=== PATIENT | male | born 1950 | race Caucasian/White ===

== ENCOUNTER 2023-04-23 14:45 | Outpatient (CLI) | payer MEDICARE, SELFPAY | END 2023-04-23 14:46 | disposition home or self-care (01) | PROVIDERS: PCP Internal Medicine; Visit Provider Internal Medicine | DX: Z00.00 Encounter for general adult medical examination without abnormal findings (principal); I10 Essential (primary) hypertension; E78.5 Hyperlipidemia, unspecified; E03.9 Hypothyroidism, unspecified; N41.9 Inflammatory disease of prostate, unspecified | CPT/HCPCS: 80053; 80061; 84153 ==

== ENCOUNTER 2024-12-02 09:48 | Outpatient (CLI) | payer MEDICARE, SELFPAY | END 2024-12-02 09:49 | disposition home or self-care (01) | LOC: NFLDREF 12-15 00:19 | PROVIDERS: PCP Internal Medicine; Referring Provider Internal Medicine; Visit Provider Internal Medicine | DX: E03.9 Hypothyroidism, unspecified (principal); I10 Essential (primary) hypertension; N41.9 Inflammatory disease of prostate, unspecified; E78.5 Hyperlipidemia, unspecified; Z12.5 Encounter for screening for malignant neoplasm of prostate | CPT/HCPCS: 80053; 80061; 84439; 84443; G0103 ==

== ENCOUNTER 2024-12-22 14:31 | Emergency (ER) | payer MEDICARE, SELFPAY ==
--- OUTSIDE RECORDS SUMMARY | 2024-12-22 14:33 | XMS_ITS | Clinical Summary ---
Author Organization [employer] [facility] Address [place], [place] [address] Care Team Providers Care Tax Compliance Agent Name Role Phone Cameron Kim MD Primary Care Provider Allergies Active Allergy Reactions Criticality Noted Date Comments Ciprofloxacin 06/26/2010 Hives Hydrocortisone cortisone creams Morphine Anaphylaxis High 07/23/2021 Penicillins *Unknown - Follow up needed 021 Medications FISH OIL 1,000 MG CAP 1 daily 0 08/14/2009 Active MEDICATION ORDER COMPOSER Juice Plus 6 capsules daily 0 08/14/2009 Active levothyroxine (SYNTHROID) 112 mcg tablet 12/23/2015 Active Active Problems Problem Noted Date Diagnosed Date Acute prostatitis 05/29/2010 Spigelian hernia 08/14/2009 Sciatica 08/14/2009 Other and unspecified hyperlipidemia Unspecified hypothyroidism Routine general medical exam ination at a health care facility Overview (12/24/2006): colonoscopy bone density Last Lipids Chol:4349509/16/2005 T09/16/2005 HDL:4709/16/2005 LDL:9336609/16/2005 GLUCOSE (mg/dL) Date Value 09/16/2005 92 .lastpsa 0.40 08/08/2004 Immunizations Name Administration Dates Next Due Influenza, IIV3 (Age >=3 years) 08/14/2009,10/07 Tdap 08/01/2008 Family History Medical History Relation Name Comments Heart Disease Father Relation Name Status Comments Father Alive bypass surgery Social History Tobacco Use Types Packs/Day Years Used Date Smoking Tobacco: Never Smokeless Tobacco: Never Tobacco Cessation:Counseling Given: Yes Comments:non-smoker Alcohol Use Standard Drinks/Week Comments No 0 (1 standard drink = 0.6 oz pur e alcohol) Sex and Gender Information Value Date Recorded Sex Assigned at Not on file 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 Gender Identity Not on file Sexual Orientation Not on file Obstetrics History Last Filed Vital Signs Vital Sign Reading Time Taken Comments Blood Pressure 156/119 05/24/2022 8:05 PM CDT Pulse 78 05/24/2022 8:05 PM CDT Temperature 36.6 C (97.9 F) 05/24/2022 7:28 PM CDT Respiratory Rate 18 05/24/2022 8:05 PM CDT Oxygen Saturation 98% 05/24/2022 8:05 PM CDT Inhaled Oxygen Concentration - - Weight 70.3 kg (155 lb) 05/24/2022 7:28 PM CDT Height 177.8 cm (5' 10) 08/25/2018 9:15 AM CDT Body Mass Index 22.24 08/25/2018 9:15 AM CDT Plan of Treatment Health Maintenance Due Date Last Done Comments Depression screening for age 12+ 1962 Hepatitis C screening for ag e 18-79 1968 Colonoscopy through age 75 1995 Pneumococcal series for age 50+ (1 of 1 - PCV) 2000 Zoster (shingles) series for age 50+ (1 of 2) 2000 Lipids for age 45-75 02/01/2015 02/01/2010, 08/14/2009, 12/26/2006, Additional history exists Medicare Wellness for age 65+ 2015 BMI (ht and wt on same day) for age 18+ 03/18/2017 03/18/2016 Tetanus booster 08/01/2018 08/01/2008 COVID-19 vaccine series (2023- season) 2024 03/01/2021, 02/01/2021 Influenza for age 65+ 07/18/2024 08/14/2009, 007 RSV vaccine for adults or (1 - 1-dose 75+ series) 2025 Tdap Completed 08/01/2008 Procedures Procedure Name Priority Date/Time Associated Diagnosis Comments LIPID PANEL Routine 02/01/2010 11:16 AM CDT HYPERLIPIDEMIA from Last 3 Months or Most Recently Relevant to Health Maintenance Results * (ABNORMAL) LIPID PANEL (02/01/2010 11:16 AM CDT) CHOLESTEROL,TOTAL 206(H) 110 - 199 mg/dL [facility] TRIGLYCERIDES 96 40 - 149 mg/dL [facility] HDL CHOLESTEROL 47 >40 mg/dL [facility] CHOL/HDL RATIO 4.38 <4.51 [facility] LDL CHOLESTEROL 140(H) <131 mg/dL [facility] PATIENT STATUS Fasting [facility] Blood specimen (specimen) BLOOD SPECIMEN / Unknown 02/01/2010 11:16 AM CDT 02/01/2010 10:23 AM CDT Leoncio Vizcaino MD CHEMISTRY Final Result [facility] INTERNAL ZIP [id number] [place] [phone] from Last 3 Months or Most Recently Relevant to Health Maintenance Insurance [employer] MEDICARE ADVANTAGE MR [employer] MEDICARE ADVANTAGE MR Care Teams Tax Compliance Agent Relationship Specialty Start Date End Date Cameron Kim MD [address] [place] [address] PCP - General Internal Medicine 05/24/22
--- OUTSIDE RECORDS SUMMARY | 2024-12-22 14:33 | XMS_ITS | Clinical Summary ---
Author Organization [employer] Address [address] [place] [address] Care Team Providers Care Physical Anthropologist Name Role Phone Cameron Kim MD Primary Care Provider [phone] Source Comments You are receiving this document as you are listed as the primary care provider,follow-up provider, or the patient has been referred to you for consultation.This is in compliance with the Medicare and[facility] E[facility] Incentive Program,which states Providers who transition their patient to another setting of careor provider of care or refers their patient to another provider of care shouldprovide summary care record for each transition of care or referral. [employer] Allergies Active Allergy Reactions Criticality Noted Date Comments Cephalexin Unknown 07/22/2021 Cortisone Acetate Other, see comments Medium 8 scally and puffy Morphine Anaphylaxis High 07/23/2021 Penicillins Unknown 07/22/2021 Medications Medication Sig Dispensed Refills Start Date End Date Status levothyroxine (SYNTHROID) 112 MCG tablet Take 112 mcg by mouth daily. Active cholecalciferol 25 MCG TABS Take 1 Tablet by mouth daily. 100 Tablet 3 07/26/2021 Active polyethylene glycol (MIRALAX) 17 g packet Take 1 Packet by mouth two times a day. 365 Each 07/25/2021 Active gabapentin (NEURONTIN) 300 MG capsule TAKE 1 CAPSULE BY MOUTH THREE TIMES A DAY. 270 Capsule 3 07/25/2021 Active Active Problems Problem Noted Date Diagnosed Date Foreign body of cornea, right 07/15/2013 Immunizations Name Administration Dates Next Due Flu Vac (3+ yrs) 10/24/2008 Moderna Monovalent 12+ 03/01/2021,02/01/2021 Social History Tobacco Use Types Packs/Day Years Used Date Smoking Tobacco: Never Alcohol Use Standard Drinks/Week Comments Not Asked 0 (1 standard drink = 0.6 oz pur e alcohol) Sex and Gender Information Value Date Recorded Sex Assigned at Not on file Gender Identity Not on file Sexual Orientation Not on file Last Filed Vital Signs Vital Sign Reading Time Taken Comments Blood Pressure 119/90 07/26/2021 4:00 PM CDT Pulse 64 07/26/2021 4:00 PM CDT Temperature 36.6 C (97.9 F) 07/26/2021 4:00 PM CDT Respiratory Rate 18 07/26/2021 4:00 PM CDT Oxygen Saturation 97% 07/26/2021 4:00 PM CDT Inhaled Oxygen Concentration - - Weight 81.6 kg (180 lb) 07/24/2021 7:45 AM CDT Height 180.3 cm (5' 11) 07/24/2021 7:45 AM CDT Body Mass Index 25.1 07/24/2021 7:45 AM CDT Plan of Treatment Health Maintenance Due Date Last Done Comments Hep C Screening (Preventive Services) 1950 Medicare Annual Wellness Visit 1950 DTaP/Tdap/Td (1 - Tdap) 1969 Cholesterol 1985 Zoster/Shingles (1 of 2) 2000 Pneumococcal 65+ Yrs (1 - PCV) 2015 Colonoscopy 03/21/2021 03/21/2011 COVID-19 Vaccine (3 - 2023-2 5 season) 2024 03/01/2021, 02/01/2021 Influenza (#1) 2024 10/24/2008 RSV (1 - 1-dose 75+ series) 2025 HepA Aged Out No longer eligi ble based on patient's age to complete this topic HepB Aged Out No longer eligi ble based on patient's age to complete this topic Hib Aged Out No longer eligi ble based on patient's age to complete this topic IPV (Polio) Aged Out No longer eligi ble based on patient's age to complete this topic MCV4 Aged Out No longer eligi ble based on patient's age to complete this topic Advance Directives * Full Code (Latest Code Status on File) Date Activated Date Inactivated Comments 07/23/2021 6:43 AM 07/26/2021 6:35 PM Care Teams Physical Anthropologist Relationship Specialty Start Date End Date Cameron Kim MD [address] [place] [address] PCP - General 07/22/21
[2024-12-22 14:37] VITALS: BP 142/85; PULSE 82; RESP 16; TEMP 36.4; O2SAT 97; BMI 25.5
--- NOTE | 2024-12-22 14:55 | ED_ITS ---
HPI - General Adult General Time Seen by Provider: 14:55 Date Seen: 12/22/24 Chief complaint: Extremity Pain/Injury, Lower Stated complaint: possible blood clot Time Seen by Provider: 12/22/24 14:32 Source: patient and RN notes reviewed Mode of arrival: ambulatory Limitations: no limitations History of Present Illness HPI narrative: This 74-year-old male is coming in with a sore area in his right mid outer thigh. He just noticed a few days ago. It does not hurt within the bones is or the leg itself with standing. He just feels generalized sore area. There is no cramping. He notes no trauma. He has no associated shortness of breath or chest pain. He has never had a blood clot before. He is leaving on a trip to [place] on Friday, told some of his friends whom became concerned about a possible blood clot. There is no family history of blood clots. Related Data Previous Rx's ?Medication ?Instructions ?Recorded levothyroxine 112 mcg tablet 112 mcg PO DAILY Hypothyroidism 12/02/24 #90 tabs losartan 50 mg-hydrochlorothiazide 1 tab PO QDAY #90 tabs 12/02/24 12.5 mg tablet Allergies Allergy/AdvReac Type Severity Reaction Status Date / Time morphine Allergy Intermediate Confusion Verified 04/22/23 11:49 Quinolones Allergy Mild Rash Verified 04/22/23 11:49 Review of Systems Narrative: As per HPI. PFS PFS Medical History Healthcare maintenance ?Z00.00 - Encounter for general adult medical examination without abnormal findings (ICD-10) Skin lesions ?L98.9 - Disorder of the skin and subcutaneous tissue, unspecified (ICD-10) Hypertension ?I10 - Essential (primary) hypertension (ICD-10) Hypothyroidism ?E03.9 - Hypothyroidism, unspecified (ICD-10) Surgical History H/O ventral hernia repair (01/15/11) ?Z98.890 - Other specified postprocedural states (ICD-10) ?Z87.19 - Personal history of other diseases of the digestive system (ICD-10) H/O urethrotomy (01/15/11) ?Z98.890 - Other specified postprocedural states (ICD-10) S/P spigelian hernia repair, follow-up exam ?Z09 - Encounter for follow-up examination after completed treatment for conditions other than malignant neoplasm (ICD-10) Social History What is your current living situation?: I presently have a place to live Problems where you live: declined to answer In the past 12 months, utilities in danger of being shut off: no In past 12 months, lack of transportation kept you from medical appts, meetings, work, or getting things needed for daily living: no In the past 12 mos, have been you worried that your food would run out before you had money to buy more?: never true In the past 12 mos, the food you bought just didn't last and you didn't have money to buy more?: never true Smoking Status: Never smoker How often do you have a drink containing alcohol: never AUDIT-C Alcohol total score: 0 Non-prescribed substance use: denies use How often does anyone, including family, friends and others, physically hurt you : never How often does anyone, including family, friends and others, insult or talk down to you: never How often does anyone, including family, friends and others, threaten you with harm: never How often does anyone, including family, friends and others, scream or curse at you: never Exam Const: Vital Signs, click to edit/add: Vital Signs - 24 hr 12/22/24 14:37 12/22/24 16:45 Temperature 97.6 F 98.0 F Pulse Rate [Pulse Oximeter] 82 64 Respiratory Rate 16 18 Blood Pressure [Ri ght Upper Arm] 142/85 H 137/105 H Pulse Oximetry 97 98 Oxygen Delivery Me thod Room Air Room Air This 74-year-old male is ambulatory into the ED. he is alert, interactive, no apparent distress. Lungs are clear come good air entry, no wheezing or crackles, no tachypnea, no accessory muscle use. CV regular rate and rhythm, no murmur, normal S1-S2. On inspection of his lower extremities throughout, there is no evidence of any erythema, no ecchymosis, no swelling. He has normal symmetrical peripheral pulses as well as sensation. He can straight leg raise this leg, pain is more of a discomfort and is in the mid lateral right thigh, I cannot necessarily find any palpable mass or lesion. There is just an area of tenderness with no overlying skin changes. Does seem like it could be with in the muscle itself and that part of the leg. Again, no palpable mass felt though. Strength is maintained. Documenting provider has reviewed patient's vital signs: yes Course Course ED Course: Have reviewed with patient that we will indeed proceed with venous US of this lower extremity to rule out DVT. He is happy with this plan. He did just have normal chemistries in clinic on December 02 that were reviewed. Reevaluation(s) Time of Reevaluation #1: 16:54 Reevaluation #1: Have reviewed with patient is negative ultrasound. He brought up that he thinks this might be discogenic disease. He has had a history of fracture of his back and had underlying degenerative issues before that. He is thinking he might just be feeling pain in this thigh from nerve aggravation. 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 He declines any prednisone or any medicines. He states he is just going to get back to his back exercises. Vital Signs Vital signs: Initial Vital Signs Temperature 97.6 F 12/22/24 14:37 Temperature Source Temporal Artery Scan 12/22/24 14:37 Pulse Rate 82 12/22/24 14:37 Respiratory Rate 16 12/22/24 14:37 Blood Pressure 142/85 H 12/22/24 14:37 Blood Pressure Mean 104 12/22/24 14:37 Blood Pressure Position Sitting 12/22/24 14:37 Pulse Oximetry 97 12/22/24 14:37 Oxygen Delivery Method Room Air 12/22/24 14:37 Vital Signs Temperature 97.6 F 12/22/24 14:37 Pulse Rate 82 12/22/24 14:37 Respiratory Rate 16 12/22/24 14:37 Blood Pressure 142/85 H 12/22/24 14:37 Pulse Oximetry 97 12/22/24 14:37 Oxygen Delivery Method Room Air 12/22/24 14:37 Temperature 98.0 F 12/22/24 16:45 Pulse Rate 64 12/22/24 16:45 Respiratory Rate 18 12/22/24 16:45 Blood Pressure 137/105 H 12/22/24 16:45 Pulse Oximetry 98 12/22/24 16:45 Oxygen Delivery Method Room Air 12/22/24 16:45 Medical Decision Making Imaging Data Venous US: Attestation: I have reviewed the pertinent imaging results. Radiologist's impression: Patient: ALEX KAUR Facility:?[facility] Patient ID:?[id number] Site Patient ID:?[id number]. Site :?[id number] Study:?US-Extremity Right LEV-12/22/2024 4:32:28 PM Ordering Physician:?Mojgan Snider Final Report: INDICATION: Right thigh pain TECHNIQUE: Venous duplex ultrasound of the right lower extremity utilizing compression with mahmood-scale, color Doppler, and spectral Doppler imaging. COMPARISON: None FINDINGS: There is no sonographic evidence of deep vein thrombosis in the right common femoral, deep femoral, superficial femoral, popliteal, posterior tibial, peroneal, or contralateral common femoral veins. There is no visualized superficial vein thrombosis. The soft tissues are unremarkable. IMPRESSION: No deep vein thrombosis in the right lower extremity. Dictated by Adam Guevara MD @ 12/22/2024 4:39:45 PM (Electronic Signature) Discharge Plan Discharge Clinical Impression: Acute pain of right thigh Patient Disposition: Home, Self-Care Condition: Stable Instructions: Leg Pain (ED) Additional Instructions: Do agree that this could be a manifestation nerve aggravation from your back. Do encourage you to do your back exercises. You certainly can try some Tylenol per bottle directions. If this is not improving, have further concerns, do recommend re-evaluation. Activity Level: Activity as Tolerated Prescriptions: No Action levothyroxine 112 mcg tablet 112 mcg PO DAILY Qty: 90 3RF losartan-hydrochlorothiazide 50-12.5 mg tablet 1 tab PO QDAY Qty: 90 3RF Follow Up/Referrals: Cameron Kim MD [Primary Care Provider] - Stand Alone Forms: [employer] Info Instructions
--- NOTE | 2024-12-22 15:01 | CRLHL7_ITS ---
For Patients: As a result of the Century Cures Act, medical imaging exams and procedure reports are released immediately into your electronic medical record. You may view this report before your referring provider. If you have questions, please contact your health care provider. INDICATION: Right thigh pain TECHNIQUE: Venous duplex ultrasound of the right lower extremity utilizing compression with mahmood-scale, color Doppler, and spectral Doppler imaging. COMPARISON: None FINDINGS: There is no sonographic evidence of deep vein thrombosis in the right common femoral, deep femoral, superficial femoral, popliteal, posterior tibial, peroneal, or contralateral common femoral veins. There is no visualized superficial vein thrombosis. The soft tissues are unremarkable. IMPRESSION: No deep vein thrombosis in the right lower extremity. Dictated by Adam Guevara MD @ 12/22/2024 4:39:45 PM (Electronically Signed)
--- OUTSIDE RECORDS SUMMARY | 2024-12-22 15:16 | XMS_ITS | Clinical Summary ---
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 Gender Identity Not on file Sexual Orientation [...] CDT) CHOLESTEROL,TOTAL 206(H) 110 - 199 mg/dL [facility] TRIGLYCERIDES 96 40 - 149 mg/dL [facility] HDL CHOLESTEROL 47 >40 mg/dL [facility] CHOL/HDL RATIO 4.38 <4.51 [facility] LDL CHOLESTEROL 140(H) <131 mg/dL [facility] PATIENT STATUS Fasting [facility] Blood specimen (specimen) BLOOD SPECIMEN / Unknown 02/01/2010 11:16 AM CDT 02/01/2010 10:23 AM CDT Leoncio Vizcaino MD CHEMISTRY Final Result [facility] INTERNAL ZIP [id number] [place] [phone] from Last 3 Months or Most Recently Relevant to Health Maintenance Insurance [employer] MEDICARE ADVANTAGE MR BL[employer] MEDICARE ADVANTAGE MR Care Teams Sky Diver Relationship Specialty Start Date End Date Cameron Kim MD [address] [place] [address] PCP - General Internal Medicine 05/24/22
--- OUTSIDE RECORDS SUMMARY | 2024-12-22 15:16 | XMS_ITS | Clinical Summary ---
Author Organization [employer] Address [address] [place] [address] Care Team Providers Care Furnace Firer Name Role Phone Cameron Kim MD Primary Care Provider [phone] Source Comments You are receiving this document as you are listed as the primary care provider,follow-up provider, or the patient has been referred to you for consultation.This is in compliance with the Medicare and[facility] E[facility] Incentive Program,which states Providers who transition their patient to another setting of careor provider of care or refers their patient to another provider of care shouldprovide summary care record for each transition of care or referral. [employer] Allergies Active Allergy Reactions Criticality Noted Date [...] 6:43 AM 07/26/2021 6:35 PM Care Teams Furnace Firer Relationship Specialty Start Date End Date Cameron Kim MD [address] [place] [address] PCP - General 07/22/21
[2024-12-22 16:45] VITALS: BP 137/105; PULSE 64; RESP 18; TEMP 36.7; O2SAT 98
== END 2024-12-22 17:08 | disposition home or self-care (01) ==
PROVIDERS: Emergency Provider Family Medicine; PCP Internal Medicine
DX: M79.651 Pain in right thigh (principal)
CPT/HCPCS: 93971; 99283